=== PATIENT | female | born 1945 | race Caucasian/White ===

== ENCOUNTER 2020-02-16 15:05 | Outpatient (CLI) | payer MEDICARE, SELFPAY ==
--- NOTE | 2020-02-16 15:19 | MM_ITS ---
WS: [id number] BILATERAL SCREENING DIGITAL MAMMOGRAM WITH CAD HISTORY: SCREENING COMPARISON: 03/26/2018 at 01/04/2017 Bilateral CC and MLO views submitted. Computer aided detection analyzed. Breast composition: There are scattered areas of fibroglandular density. No suspicious masses, microc alcifications or architectural distortion. Benign calcifications. No suspicious masses or calcificati on. MM/[place] [id number] IMPRESSION: BI-RADS: 2-Benign FOLLOW UP: 1 Year Follow-up
== END 2020-02-16 15:06 | disposition home or self-care (01) ==
LOC: RADSHAW 15:11
PROVIDERS: PCP Family Medicine; Visit Provider Family Medicine
DX: Z12.31 Encounter for screening mammogram for malignant neoplasm of breast (principal)
CPT/HCPCS: 77067

== ENCOUNTER → 2020-03-02 14:18 | Outpatient (BNVA) | payer MEDICARE, SELFPAY | PROVIDERS: PCP Family Medicine; Referring Provider Family Medicine; Visit Provider Orthopaedic Surgery | DX: M25.562 Pain in left knee (principal); M25.561 Pain in right knee | CPT/HCPCS: 73560; 73565 ==

== ENCOUNTER 2020-03-29 09:47 | Outpatient (CLI) | payer MEDICARE, SELFPAY ==
--- NOTE | 2020-03-29 10:00 | IR_ITS ---
WS: [id number] LEFT KNEE ARTHROGRAM Fluoroscopic guided left knee arthrogram. CLINICAL INFORMATION: osteoarthritis left knee COMPARISON: None. TECHNIQUE: The procedure including risks, benefits, and complications were discussed with the patient , who agreed to proceed. Timeout was performed. Using sterile technique, the patient was prepped and draped in the usual sterile fashion. After 1% lidocaine injection using fluoroscopic guidance, a 22-g auge spinal needle was advanced into the left patellofemoral compartment. Subsequently 40 cc of a mix ture containing 20 cc normal saline and 20 cc Omnipaque 300 was administered. No immediate complicat ions. FLUOROSCOPY TIME: 0.7 minutes. IR/[place] [id number] IMPRESSION: Uncomplicated left knee fluoroscopic guided arthrogram. CT to follow.
--- NOTE | 2020-03-29 11:00 | CT_ITS ---
WS: [id number] CT ARTHROGRAM LEFT KNEE TECHNIQUE: CT arthrogram left knee with coronal and sagittal reformatted images. CLINICAL INFORMATION: osteoarthritis left knee COMPARISON: None. DLP: 1275.[address] scans at [facility] use at least one of these dose optimization techniques: automat ed exposure control; mA and/or kV adjustment per patient size (includes targeted exams where dose is matched to clinical indication); or iterative reconstruction. FINDINGS: CT arthrogram left knee. Moderate joint space narrowing medial joint compartment with subchondral scl erosis. Lateral compartment is better preserved. Slightly hypertrophic patella. Anterior and posterio r cruciate ligaments appear intact. Extensive tear involving the posterior horn medial meniscus extending to the meniscal root. Blunting of the posterior horn. Anterior horn is better preserved. No acute lateral meniscal tears. Moderate chondromalacia patella. Lobulated popliteal cyst communicating with the joint with layering contrast measuring 2.1 x 3.2 x 4.3 CM. Hypertrophic changes along the joint line. Medial and lateral collateral ligaments appear intact.. CT/CT knee LT w con [id number] IMPRESSION: 1. Complex tear involving the posterior horn medial meniscus extending to the meniscal root. Blunting of the posterior horn. 2. Lateral meniscus is normal. 3. Moderate joint space narrowing medial joint compartment with subchondral sc lerosis. 4. ACL and MCL appear intact. 5. Slightly hypertrophic patella with moderate chondromalacia patella. 6. Lobulated popliteal cyst measuring 2.1 x 3.2 x 4.3 CM.
[2020-03-29] MEDS: iohexol 300 mg/mL 50 mL Btl INTRA-ARTI (11:16)
== END 2020-03-29 09:48 | disposition home or self-care (01) ==
LOC: RADWPI 09:51
PROVIDERS: Family Provider Family Medicine; PCP Family Medicine; Visit Provider Orthopaedic Surgery
DX: M17.12 Unilateral primary osteoarthritis, left knee (principal); S83.232A Complex tear of medial meniscus, current injury, left knee, initial encounter; M22.42 Chondromalacia patellae, left knee; M71.22 Synovial cyst of popliteal space [Baker], left knee; X58.XXXA Exposure to other specified factors, initial encounter
CPT/HCPCS: 27369; 73701; 77002; Q9967

== ENCOUNTER 2020-04-06 06:00 | Outpatient (RCR) | payer MEDICARE, SELFPAY | END 2020-05-02 23:59 | disposition home or self-care (01) | LOC: APT 06:00 | PROVIDERS: Family Provider Family Medicine; PCP Family Medicine; Referring Provider Orthopaedic Surgery; Visit Provider Orthopaedic Surgery | DX: M17.12 Unilateral primary osteoarthritis, left knee (principal) | CPT/HCPCS: 97110; 97140; 97162 ==

== ENCOUNTER 2020-05-03 06:00 | Outpatient (RCR) | payer MEDICARE, SELFPAY | END 2020-06-02 23:59 | disposition home or self-care (01) | LOC: APT 06:00 | PROVIDERS: Family Provider Family Medicine; PCP Family Medicine; Referring Provider Orthopaedic Surgery; Visit Provider Orthopaedic Surgery | DX: M17.12 Unilateral primary osteoarthritis, left knee (principal) | CPT/HCPCS: 97110; 97140 ==

== ENCOUNTER 2020-12-26 07:35 | Outpatient (CLI) | payer MEDICARE, SELFPAY ==
[2020-12-26 07:44] VITALS: BP 150/79; PULSE 78; RESP 16; TEMP 36.9; O2SAT 96; BMI 29.9
--- NOTE | 2020-12-26 07:46 | ED_ITS ---
HPI - General Adult History of Present Illness: HPI narrative: This patient is a 75-year-old male who presents to the emergency department for infusion for treatment due to Covid. Patient denies any increased shortness of breath or work of breathing. Patient states no questions. Associated symptoms: Deny chest pain, dyspnea, headache(s), nausea, rash, palpitations or vomiting Review of Systems General: Reports: 10 or more systems reviewed and unremarkable except in HPI and below Const: Denies: fever(s), chills, body aches or fatigue Eyes: Denies: change in vision or blurry vision ENMT: Denies: throat pain, hoarseness or mouth pain Card: Denies: chest pain, palpitations, irregular heart rhythm, edema, swellin g of feet/ankles or lightheadedness Resp: Denies: dyspnea, productive cough, non-productive cough, wheezing or pain on inspiration GI: Denies: abdominal pain, nausea or vomiting : Denies: flank pain, difficulty voiding, dysuria, urinary frequency, urinary urgency or urinary hesitancy Musc: Denies: neck pain, back pain, extremity pain, extremity swelling, joint pain, joint swelling, joint redness, joint warmth or limited range of motion Skin/Breast: Denies: rash, pruritus, erythema or skin tenderness Neuro: Denies: headache(s), numbness in extremities or weakness in extremities Psych: Denies: anxiety or depression PFSH ED PFSH: Social History Smoking and tobacco status: never smoked Alcohol intake: never Physical Exam Const: COMMON NORMALS: no acute distress, average body habitus, patient oriented x3, no limitations, healthy appearing, alert and well nourished HENMT: COMMON NORMALS: normocephalic, atraumatic, hearing grossly normal bilaterally, external ears normal, EAC's normal, TM's normal bilaterally, Normal external nose present, Normal nasal mucous membranes and turbinates present, moist oral mucous membranes, oropharynx normal, dentition normal and gingiva normal HEAD & SCALP: normocephalic and atraumatic NOSE: Normal external nose present and Normal nasal mucous membranes and turbinates present EXTERNAL EAR: Yes external ears normal EXTERNAL AUDITORY CANAL: EAC's normal TYMPANIC MEMBRANE: TM's normal bilaterally Neck/C-Spine: COMMON NORMALS: full ROM, no lymphadenopathy, supple, no meningeal signs, no JVD, Thyroid normal and No carotid bruits THYROID: Thyr oid normal Chest: COMMONS NORMALS: normal inspection of the chest, normal palpation of entire chest wall, normal inspection of the breasts and normal palpation of the breasts Breast/axilla inspection: Yes normal inspection of the breasts BREAST/AXILLA PALPATION: Yes normal palpation of the breasts Resp: COMMON NORMALS: normal respiratory effort, No retractions, No use of accessory muscles, clear to auscultation bilaterally and percussion normal AUSCULTATION: clear to auscultation bilaterally PERCUSSION: percussion normal Cardio: COMMON NORMALS: no JVD, regular rate, regular rhythm, S1 normal heart sound present, S2 normal heart sound present, No gallops present (Cardio), No clicks present (Cardio), No murmurs present (Cardio), No rub (Cardio) and Peripheral pulses 2+ throughout RATE: regular rate RHYTHM: regular rhythm HEART SOUNDS: S1 normal heart sound present and S2 normal heart sound present PERIPHERAL PULSES: Peripheral pulses 2+ throughout GI: COMMON NORMALS: Normal to inspection, nondistended, normoactive bowel sounds present, Soft to palpation, non-tender, No hepatosplenomegaly present, no masses and no bruits PALPATION: Yes Soft to palpation and Yes No hepatosplenomegaly present Back/Pelvis: COMMON NORMALS: thoracic and lumbar spine normal to inspection, no thoracic nor lumbar tenderness, thoraco-lumbar ROM normal and straight leg raise negative bilaterally Extremity: COMMON NORMALS: normal to inspection, full ROM, capillary refill normal, no joint enlargement, no clubbing, cyanosis or edema, no calf tenderness and no pedal edema Neuro: COMMON NORMALS: patient oriented x3 SENSORIUM/ORIENTATION: Yes alert MENINGEAL SIGNS: Yes no meningeal signs MDM - General Adult MDM Narrative: Medical decision making narrative: This patient is a 75-year-old male who presents to the emergency department for infusion for treatment due to Covid. Patient denies any increased shortness of breath or work of breathing. Patient states no questions. Discharge Plan Discharge Patient Disposition: Home Prescriptions: No Action betamethasone acet,sod phos [Celestone Soluspan] 6 mg/mL suspension 6 mg INTRA-RA ONCE Qty: 1 RF: 0 bupivacaine (PF) 0.5 % (5 mg/mL) solution 5 mg INTRA-RA ONCE Qty: 2 RF: 0 lidocaine (PF) 10 mg/mL (1 %) solution 10 mg INTRA-RA ONCE Qty: 2 RF: 0 carvedilol 25 mg tablet 25 mg PO BID RF: 0 simvastatin 10 mg tablet 10 mg PO DAILY RF: 0 lisinopril 10 mg tablet 10 mg PO DAILY RF: 0 alendronate 70 mg tablet PO RF: 0 duloxetine 60 mg capsule, delayed rel sprinkle 60 mg PO DAILY RF: 0 mecobalamin (vitamin B12) 1,000 mcg tablet,chewable 1,000 mcg PO DAILY RF: 0 aspirin 81 mg tablet,delayed release (DR/EC) 81 mg PO DAILY RF: 0 cholecalciferol (vitamin D3) 50 mcg (2,000 unit) capsule 50 mcg PO DAILY RF: 0 fexofenadine [Ivy Allergy] 60 mg tablet 60 mg PO BID RF: 0 Referrals: Vadim Lowe MD [Primary Care Provider] - Diet: Advance as tolerated Activity: Resume usual activity 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
[2020-12-26 10:24] VITALS: BP 124/75; BP 168/104; PULSE 67; PULSE 82; RESP 18; O2SAT 95; O2SAT 98
--- NOTE | 2021-01-04 15:26 | DCPLANNER ---
manager fleet had message that patient had received the monoclonal antibody infusion. manager fleet called patient to check on how she was feeling. Patient stated that before the infusion, she had an achy body, achy joints and muscles, she had a slight headache, she did not have a fever. Patient stated that after the infusion, she still does not have a headache, she still does not have a fever, that every day she is feeling better and is getting stronger.
== END 2020-12-26 09:06 | disposition home or self-care (01) ==
PROVIDERS: Family Provider Family Medicine; PCP Family Medicine; Visit Provider Family Medicine
DX: U07.1 COVID-19 (principal)
CPT/HCPCS: 96365

== ENCOUNTER 2021-04-12 15:12 | Outpatient (CLI) | payer MEDICARE, SELFPAY ==
--- NOTE | 2021-04-12 15:24 | CT_ITS ---
WS: [id number] CT SINUSES TECHNIQUE: Noncontrast CT of the paranasal sinuses with coronal and sagittal reformatted images. CLINICAL INFORMATION: throat pain, bad taste in mouth COMPARISON: None. DLP: 415.[address] scans at [facility] use at least one of these dose optimization techniques: automated e xposure control; mA and/or kV adjustment per patient size (includes targeted exams where dose is matc hed to clinical indication); or iterative reconstruction. FINDINGS: Right to left nasal septal deviation with leftward directed spur. Deviation measures 4 mm. Paranasal sinuses are well aerated. Maxillary sinuses and sphenoid sinuses are well aerated. Sphenoid sinus ost ia are patent. Mild narrowing of the maxillary ostia bilaterally. Trace mucosal thickening ethmoid ai r cells. Hypoplastic frontal sinuses. Mastoid air cells are well aerated. Normal parapharyngeal fat. Normal posterior nasopharynx. CT/CT sinus wo con* [id number] IMPRESSION: 1. Right to left nasal deviation with leftward directed spur. Nasal septal dev iation measures 4 mm. 2. Paranasal sinuses are well aerated. 3. Mastoid air cells are well aerated. 4. Mild narrowing of the maxillary ostia bilaterally.
== END 2021-04-12 15:13 | disposition home or self-care (01) ==
PROVIDERS: PCP Family Medicine; Visit Provider Otolaryngology
DX: R43.8 Other disturbances of smell and taste (principal); R07.0 Pain in throat; J34.2 Deviated nasal septum
CPT/HCPCS: 70486

== ENCOUNTER → 2021-05-23 14:25 | Outpatient (BNVA) | payer MEDICARE, SELFPAY | PROVIDERS: PCP Family Medicine; Visit Provider Nurse Practitioner Family | DX: Z20.822 Contact with and (suspected) exposure to COVID-19 (principal) | CPT/HCPCS: 87635 ==

== ENCOUNTER → 2021-05-24 18:12 | Outpatient (BNVA) | payer MEDICARE, SELFPAY | PROVIDERS: PCP Family Medicine; Visit Provider Nurse Practitioner Family | DX: Z20.822 Contact with and (suspected) exposure to COVID-19 (principal) | CPT/HCPCS: 87801 ==

== ENCOUNTER → 2021-09-12 14:48 | Outpatient (BNVA) | payer MEDICARE, SELFPAY | PROVIDERS: PCP Family Medicine; Visit Provider Otolaryngology | DX: R04.0 Epistaxis (principal) | CPT/HCPCS: 99213 ==

== ENCOUNTER 2022-02-13 15:27 | Outpatient (CLI) | payer MEDICARE, SELFPAY ==
--- NOTE | 2022-02-13 16:18 | XRR_ITS ---
PROCEDURE INFORMATION: Exam: XR Left Hip Exam date and time: 02/13/2022 4:23 PM Age: 76 years old Clinical indication: Hip pain; Left hip; Additional info: Left hip pain TECHNIQUE: Imaging protocol: Radiologic exam of the Left hip. Views: 2 or 3 views hip with pelvis when performed. COMPARISON: CT abdomen pelvis w con* [id number] 04/04/2019 6:49 AM FINDINGS: Bones/joints: No acute fracture. Mild joint space narrowing/DJD of the left hip. Soft tissues: Unremarkable. XR/XR hip LT 2-3V wo/w pel* [id number] IMPRESSION: No acute findings. Mild DJD of the left hip.
== END 2022-02-13 15:28 | disposition home or self-care (01) ==
PROVIDERS: PCP Family Medicine; Visit Provider Family Medicine
DX: M16.12 Unilateral primary osteoarthritis, left hip (principal)
CPT/HCPCS: 73502

== ENCOUNTER → 2022-03-11 13:38 | Outpatient (BNVA) | payer MEDICARE, SELFPAY | PROVIDERS: PCP Family Medicine; Visit Provider Nurse Practitioner | DX: N39.0 Urinary tract infection, site not specified (principal) | CPT/HCPCS: 81000 ==

== ENCOUNTER 2022-03-21 12:59 | Outpatient (CLI) | payer MEDICARE, SELFPAY ==
--- NOTE | 2022-03-21 13:25 | MM_ITS ---
WS: [id number] BILATERAL 3D TOMOSYNTHESIS DIGITAL SCREENING MAMMOGRAPHY WITH CAD CLINICAL INFORMATION: SCREEN HISTORY: Screening mammogram. No current complaints. COMPARISON: February 16, 2020 TECHNIQUE: Bilateral CC and MLO views. FINDINGS: Scattered fibroglandular densities bilaterally. No suspicious focal mass, asymmetry, calcifications, or architectural distortion. No evidence of malignancy. Vascular calcifications.Incidental punctate a nd lucent centered calcifications. MM/[place] [id number] IMPRESSION: BI-RADS: 2-Benign FOLLOW UP: 1 Year Follow-up Recommend return to annual screening mammography.
== END 2022-03-21 13:00 | disposition home or self-care (01) ==
PROVIDERS: PCP Family Medicine; Visit Provider Family Medicine
DX: Z12.31 Encounter for screening mammogram for malignant neoplasm of breast (principal)
CPT/HCPCS: 77063; 77067

== ENCOUNTER → 2023-05-21 08:47 | Outpatient (BNVA) | payer MEDICARE, SELFPAY | PROVIDERS: PCP Family Medicine; Visit Provider Family Medicine | DX: R53.83 Other fatigue (principal) | CPT/HCPCS: 80053; 82306; 82607; 83036; 83880; 84443; 85025; 86140 ==

== ENCOUNTER → 2024-05-14 14:05 | Outpatient (BNVA) | payer MEDICARE, SELFPAY | PROVIDERS: PCP Family Medicine; Visit Provider Podiatrist Foot & Ankle Surgery | DX: M79.671 Pain in right foot (principal); L60.0 Ingrowing nail; L84 Corns and callosities | CPT/HCPCS: 73630; 99203 ==

== ENCOUNTER → 2025-01-12 15:09 | Outpatient (BNVA) | payer MEDICARE, SELFPAY | PROVIDERS: PCP Family Medicine; Visit Provider Family Medicine | DX: T14.8XXA Other injury of unspecified body region, initial encounter (principal); X58.XXXA Exposure to other specified factors, initial encounter | CPT/HCPCS: 80053; 85025 ==

== ENCOUNTER 2025-01-14 15:02 | Outpatient (CLI) | payer MEDICARE, SELFPAY ==
--- NOTE | 2025-01-14 15:00 | MM_ITS ---
WS: [id number] BILATERAL SCREENING DIGITAL TOMOSYNTHESIS MAMMOGRAM WITH CAD HISTORY: SCREENING COMPARISON: 03/21/2022, 02/16/2020 Bilateral CC and MLO views with tomosynthesis and synthetic mammography submitted. Computer aided detection analyzed. Breast composition: There are scattered areas of fibroglandular density. No suspicious masses, microcalcifications or architectural distortion. Scattered benign calcifications and arterial calcifications. Defibrillator LEFT upper thorax obscures a small portion of the breast. MM/MM scr BI tomosynthesis [id number] IMPRESSION: BI-RADS: 2 - Benign. FOLLOW UP: 1 Year Follow-up
== END 2025-01-14 15:03 | disposition home or self-care (01) ==
LOC: MOBLMAM 15:03
PROVIDERS: PCP Family Medicine; Visit Provider Family Medicine
DX: Z12.31 Encounter for screening mammogram for malignant neoplasm of breast (principal); R92.323 Mammographic fibroglandular density, bilateral breasts; R92.1 Mammographic calcification found on diagnostic imaging of breast; Z95.810 Presence of automatic (implantable) cardiac defibrillator
CPT/HCPCS: 77063; 77067

== ENCOUNTER 2025-02-23 12:23 | Outpatient (CLI) | payer MEDICARE, SELFPAY ==
--- NOTE | 2025-02-23 12:29 | XR_ITS ---
WS: [id number] Exam: XR wrist RT 2V [id number] Date/Time of Exam: 02/23/2025 12:39 PM Reason For Exam: wrist pain and ? ganglion cyst lateral to ulna No fracture. There is calcification of the triangular fibrocartilage. Ill- defined soft tissue mass along the ulnar margin of the wrist. Advanced degenerative change at the articulation of the scaphoid and greater and lesser multangular. XR/XR wrist RT 2V [id number] IMPRESSION: 1. Soft tissue swelling or mass along the ulnar aspect of the wrist. 2. Chondrocalcinosis. Degenerative changes as above.
== END 2025-02-23 12:24 | disposition home or self-care (01) ==
PROVIDERS: PCP Family Medicine; Visit Provider Family Medicine
DX: M25.831 Other specified joint disorders, right wrist (principal); M11.231 Other chondrocalcinosis, right wrist
CPT/HCPCS: 73100

== ENCOUNTER → 2025-03-24 15:09 | Outpatient (BNVA) | payer MEDICARE, SELFPAY | PROVIDERS: PCP Family Medicine; Visit Provider Specialist | DX: M25.531 Pain in right wrist (principal); M79.89 Other specified soft tissue disorders | CPT/HCPCS: 73110; 99204 ==

== ENCOUNTER 2025-04-01 09:18 | Outpatient (CLI) | payer MEDICARE, SELFPAY ==
--- NOTE | 2025-04-01 09:15 | CT_ITS ---
WS: [id number] CT RIGHT WRIST, NONCONTRAST HISTORY: right wrist soft tissue mass Technique: All CT scans at [facility] use at least one of these dose optimization techniques: automated exposure control; mA and/or kV adjustment per patient size (includes targeted exams where dose is matched to clinical indication); or iterative reconstruction. DLP: 91.12 mGy.cm COMPARISON: Radiograph 03/24/2025 Marker is placed along the medial RIGHT wrist at the level of the palpable abnormality. Palpable nodule is just lateral to the distal ulna. There is a soft tissue mass which is ill-defined measuring 10 x 7 mm. This is slightly lobulated and there may be a septation. Carpal rows are normally aligned. There is severe narrowing between the scaphoid and the trapezium and trapezoid. There is bone upon bone from arthropathy. There is additional narrowing and sclerosis between the pisiform and triquetrum. There are small subchondral cysts along the joint space which is obliterated. Distal radius and ulna are intact. No additional soft tissue masses or abnormality. CT/CT wrist RT wo con* [id number] IMPRESSION: 1. Lobulated soft tissue mass measures 10 x 7 mm lateral to the distal ulna an d triquetrum. This is probably a small ganglion. 2. Severe arthropathy with complete loss of joint space between the pisiform a nd triquetrum. 3. Severe scaphotrapezium-trapezoid joint arthritis.
== END 2025-04-01 09:19 | disposition home or self-care (01) ==
LOC: RAD 09:22
PROVIDERS: PCP Family Medicine; Visit Provider Specialist
DX: M19.031 Primary osteoarthritis, right wrist (principal); M79.89 Other specified soft tissue disorders
CPT/HCPCS: 73200

== ENCOUNTER → 2025-04-05 14:24 | Outpatient (BNVA) | payer MEDICARE, SELFPAY | PROVIDERS: PCP Family Medicine; Visit Provider Family Medicine | DX: R51.9 Headache, unspecified (principal); R53.83 Other fatigue | CPT/HCPCS: 80053; 85025; 86140 ==

== ENCOUNTER → 2025-04-14 15:34 | Outpatient (BNVA) | payer MEDICARE, SELFPAY | PROVIDERS: PCP Family Medicine; Visit Provider Specialist | DX: M19.031 Primary osteoarthritis, right wrist (principal); R22.31 Localized swelling, mass and lump, right upper limb | CPT/HCPCS: 99214 ==